=== PATIENT | female | born 1990 | race Caucasian/White ===

== ENCOUNTER 2018-07-10 19:09 | Inpatient (IN) | payer BC ==
[2018-07-10] MEDS ORDERED: METHYLERGONOVINE MALEATE 0.2 MG/ML SOL IM PRN (20:55)
[2018-07-10] MEDS ORDERED: SODIUM CHLORIDE 0.9% FLUSH 10 ML SOL IV PRN (20:55)
[2018-07-10] MEDS ORDERED: OXYTOCIN 10000 MU/ML SOL IM PRN (20:55)
[2018-07-10] MEDS ORDERED: FENTANYL 100MCG/2ML SOL IV PRN (20:55)
[2018-07-10] MEDS ORDERED: CARBOPROST 250 MCG/ML SOL IM PRN (20:55)
[2018-07-10] MEDS ORDERED: MEPIVACAINE HCL 1% MPF 30 ML/VIAL SOL INFIL PRN (20:55)
[2018-07-10] MEDS ORDERED: LACTATED RINGERS 1,000 ML IV PRN (20:55)
[2018-07-10] MEDS: SODIUM CHLORIDE 0.9% FLUSH 10 ML SOL IV SCH (22:00)
[2018-07-11] MEDS: SODIUM CHLORIDE 0.9% FLUSH 10 ML SOL IV SCH ×3 (04:28→21:43)
[2018-07-11] MEDS ORDERED: TERBUTALINE SULFATE 1 MG/ML SOL SC PRN (04:53)
[2018-07-11] MEDS ORDERED: LACTATED RINGERS 1,000 ML IV SCH ×2 (05:00→13:15)
[2018-07-11] MEDS ORDERED: OXYTOCIN 10000 MU/ML 20,000 MU in LACTATED RINGERS 1,000 ML IV SCH (05:00)
[2018-07-11] MEDS ORDERED: OXYTOCIN 10000 MU/ML SOL ONE (05:21)
[2018-07-11] MEDS ORDERED: LACTATED RINGERS 1,000 ML ONE (05:21)
[2018-07-11] MEDS ORDERED: NALOXONE HYDROCHLORIDE 0.4 MG/ML SOL IV PRN (13:15)
[2018-07-11] MEDS ORDERED: DIPHENHYDRAMINE 50 MG/ML SOL IV PRN (13:15)
[2018-07-11] MEDS ORDERED: NALBUPHINE HCL 20 MG/ML SOL IV PRN (13:15)
[2018-07-11] MEDS ORDERED: EPHEDRINE SULFATE 50 MG/ML SOL IV PRN (13:15)
[2018-07-11] MEDS ORDERED: ONDANSETRON HCL 4 MG/2 ML SOL IV PRN (13:22)
[2018-07-11] MEDS: LACTATED RINGERS 1,000 ML IV SCH ×2 (13:24→14:08)
[2018-07-11] MEDS ORDERED: ROPIVACAINE HYDROCHLORIDE 5 MG/ML SOL ONE (13:27)
[2018-07-11] MEDS ORDERED: FENTANYL 250 MCG/ 5ML SOL ONE (13:27)
[2018-07-11 13:29] LABS: BASOPHILS % (AUTO) 1 % (0-3); EOSINOPHILS % (AUTO) 1 % (0-9); HEMATOCRIT 35 % (35-47); HEMOGLOBIN 11.6 gm/dl (12.0-15.5); LYMPHOCYTES % (AUTO) 22.2 % (10-50); MEAN CORPUSCULAR HGB CONC 33.5 gm/dl (32.0-36.0); MEAN CORPUSCULAR VOLUME 93 fL (81-99); MONOCYTES % (AUTO) 7.4 % (0-12); NEUTROPHILS % (AUTO) 69.2 % (37-80)
[2018-07-11] MEDS ORDERED: LIDOCAINE HCL 2% MPF 10 ML SOL ONE (13:32)
[2018-07-11] MEDS ORDERED: BISACODYL 10 MG SUP PR PRN (18:26)
[2018-07-11] MEDS ORDERED: APAP/HYDROCODONE 325/5 TAB PO PRN (18:26)
[2018-07-11] MEDS ORDERED: METHYLERGONOVINE MALEATE 0.2 MG TAB PO PRN (18:26)
[2018-07-11] MEDS ORDERED: TEMAZEPAM 15MG 15 MG CAP PO PRN (18:26)
[2018-07-11] MEDS ORDERED: BENZOCAINE/MENTHOL 1 SPR TOP PRN (18:26)
[2018-07-11] MEDS ORDERED: FLEET ENEMA PR PRN (18:26)
[2018-07-11] MEDS: DOCUSATE SODIUM 100 MG SGL PO SCH (21:43)
[2018-07-11] MEDS: IBUPROFEN 600 MG TAB PO PRN (23:22)
[2018-07-12] MEDS: IBUPROFEN 600 MG TAB PO PRN ×3 (05:54→22:23)
[2018-07-12] MEDS: WITCH HAZEL 1 EA PAD TOP PRN ×2 (05:55→22:23)
[2018-07-12] MEDS: DOCUSATE SODIUM 100 MG SGL PO SCH ×2 (09:45→22:23)
[2018-07-12] MEDS: SODIUM CHLORIDE 0.9% FLUSH 10 ML SOL IV SCH ×2 (10:17→18:44)
[2018-07-12] MEDS ORDERED: BISACODYL 10 MG SUP PR ONE (18:17)
[2018-07-12 22:55] VITALS: O2SAT 98
[2018-07-13] MEDS: IBUPROFEN 600 MG TAB PO PRN (05:01)
[2018-07-13 07:14] LABS: BASOPHILS % (AUTO) 0 % (0-3); EOSINOPHILS % (AUTO) 1 % (0-9); HEMATOCRIT 27 % (35-47); HEMOGLOBIN 8.8 gm/dl (12.0-15.5); LYMPHOCYTES % (AUTO) 20.1 % (10-50); MEAN CORPUSCULAR HEMOGLOBIN 30.7 pg (27.0-32.0); MEAN CORPUSCULAR HGB CONC 33.1 gm/dl (32.0-36.0); MEAN CORPUSCULAR VOLUME 93 fL (81-99); MONOCYTES % (AUTO) 5.6 % (0-12); NEUTROPHILS % (AUTO) 73.3 % (37-80)
[2018-07-13] MEDS: DOCUSATE SODIUM 100 MG SGL PO SCH (08:56)
[2018-07-13] MEDS ORDERED: FERROUS GLUCONATE 324 MG TABLET PO SCH (09:00)
[2018-07-13 10:33] VITALS: BP 128/78; PULSE 81; RESP 20; TEMP 98
[2018-07-13] MEDS ORDERED: INFLUENZA VIRUS VACCINE 0.5 ML SUS IM ONE (10:43)
== END 2018-07-13 15:40 | disposition home or self-care (01) | DRG 560 ==
LOC: UNDOADMOB 19:42 → OB 19:42 → OBSVTOIN 19:45
PROVIDERS: ADMIT Family Medicine; ATTEND Family Medicine
PROC: 10E0XZZ Delivery of Products of Conception, External Approach (ICD-10-PCS; principal; 2018-07-11)
PROC: 0KQM0ZZ Repair Perineum Muscle, Open Approach (ICD-10-PCS; 2018-07-11)
DX: O80 Encounter for full-term uncomplicated delivery (principal); D64.9 Anemia, unspecified; Z37.0 Single live birth; Z3A.39 39 weeks gestation of pregnancy; O42.90 Premature rupture of membranes, unspecified as to length of time between rupture and onset of labor, unspecified weeks of gestation
CPT/HCPCS: 36415; 59025; 84112; 85018; 85025; J0670; J2405; J2590; J2795; J3010; J3105; A9270-GY; J2001